=== PATIENT | male | born 1965 | race Hispanic/Latino ===

== ENCOUNTER 2018-12-29 12:35 | Inpatient (IN) | payer BC ==
[~2018-12-29] VITALS: Ht 175.3 cm; Wt 109.4 kg
[2018-12-29] MEDS ORDERED: SODIUM CHLORIDE 0.9% 1000ML 1,000 ML IV STA (13:00)
[2018-12-29] MEDS ORDERED: PANTOPRAZOLE 40 MG 10ML VIAL IV ONE (13:15)
[2018-12-29] MEDS ORDERED: ONDANSETRON HCL INJ 2MG/ML 2ML 2 MG/ML VIAL IV ONE (13:15)
[2018-12-29 13:19] LABS: BASOPHILS % 0.1 % (0.0-1.0); EOSINOPHILS # (AUTO) 0.1 (0.0-0.4); EOSINOPHILS % 0.6 % (0.0-6.0); HEMATOCRIT 44.1 % (38.2-49.6); HEMOGLOBIN 16.3 g/dL (14.0-18.0); LYMPHOCYTES % 24.8 % (18.0-39.1); MEAN CORPUSCULAR HEMOGLOBIN 30.4 pg (28-32); MEAN CORPUSCULAR VOLUME 82.1 fL (81-99); MONOCYTES # (AUTO) 0.5 (0.2-0.8); MONOCYTES % 6.5 % (4.4-11.3); NEUTROPHILS # (AUTO) 5.4 (2.1-6.9); NEUTROPHILS % 67.8 % (38.7-80.0); PLATELET COUNT 229 x10e3/uL (140-360); RED BLOOD COUNT 5.37 x10e6/uL (4.3-5.7)
[2018-12-29 13:33] LABS: INR 0.95; PROTHROMBIN TIME 13.5 seconds (11.9-14.5)
[2018-12-29 13:42] LABS: ALBUMIN 4.4 g/dL (3.5-5.0); ALBUMIN/GLOBULIN RATIO 1.3 (0.8-2.0); CALCIUM 10.4 mg/dL (8.4-10.2); CREATININE, SERUM 1.35 mg/dL (0.72-1.25)
[2018-12-29 13:49] LABS: AMYLASE 79 U/L (25-125); CREATINE KINASE 161 IU/L (30-200); LIPASE 58 U/L (8-78); MAGNESIUM 1.9 MG/DL (1.3-2.1)
[2018-12-29 14:30] LABS: AMPHETAMINES SCREEN,URINE NEGATIVE (NEGATIVE); BENZODIAZEPINES SCREEN,URINE POSITIVE (NEGATIVE); PHENCYCLIDINE SCREEN,URINE NEGATIVE (NEGATIVE)
[2018-12-29 14:32] LABS: CLARITY,URINE CLEAR (CLEAR); COLOR,URINE YELLOW (YELLOW); LEUKOCYTE ESTERASE ,URINE NEGATIVE (NEGATIVE); NITRITE,URINE NEGATIVE (NEGATIVE)
[2018-12-29 14:33] LABS: BILIRUBIN,URINE NEGATIVE (NEGATIVE); KETONES,URINE NEGATIVE (NEGATIVE); PROTEIN,URINE DIPSTICK NEGATIVE (NEGATIVE); URINE UROBILINOGEN 0.2 mg/dL (0.2 - 1)
[2018-12-29 14:38] LABS: EPITHELIAL CELLS,URINE RARE /LPF; TRANSITIONAL EPI CELLS,URINE RARE; WBC,URINE (MAN) 0-5 /HPF (0-5)
--- NOTE | 2018-12-29 15:17 | NUR ---
STILL WAITING ON CT ABD/PELVIS
[2018-12-29] MEDS ORDERED: IOPAMIDOL 370 MG/ML 200 ML INFUS..BTL INJ ONE (15:19)
[2018-12-29] MEDS ORDERED: SODIUM CHLORIDE 0.9% 50ML 50 ML ONE (15:19)
--- NOTE | 2018-12-29 16:41 | NUR ---
still waiting on CT abd/pelvis results
--- NOTE | 2018-12-29 17:10 | Diagnostic Imaging Report ---
EXAM: CT ABDOMEN AND PELVIS with IV CONTRAST DATE: 12/29/2018 Time stamp on Exam: 3:27 PM INDICATION: Nausea and vomiting with abdominal pain COMPARISON: None TECHNIQUE: The abdomen and pelvis were scanned using a multidetector helical scanner. Coronal and sagittal reformations were obtained. Routine protocol performed. IV Contrast: 100 cc of Isovue-370 Oral Contrast: Oral water Radiation Dose: Total DLP 817.65 mGy*cm; low-dose technique was utilized to maintain the lowest possible dose to the patient. Estimated effective dose: DLP x 0.015 x size factor Patient had a slightly low eGFR at 55. He underwent hydration protocol with administration of 750 cc of fluids per ER physician direction. FINDINGS: LOWER THORAX: No consolidations LIVER: No masses with decreased attenuation compared to the spleen compatible with fatty infiltration. BILIARY: The gallbladder is unremarkable. No ductal dilatation. SPLEEN: No masses PANCREAS: No masses ADRENALS: No nodules KIDNEYS: Symmetric perfusion. No enhancing masses. No hydronephrosis. Nonobstructing left interpolar renal stone measuring 3.1 mm. GI TRACT: No distention, wall thickening or evidence of obstruction. Sigmoid colon diverticula without findings of diverticulitis. VESSELS: Unremarkable PERITONEUM/RETROPERITONEUM: No free air or fluid LYMPH NODES: No lymphadenopathy REPRODUCTIVE ORGANS: Unremarkable BLADDER: Unremarkable SOFT TISSUES: Unremarkable BONES: No suspicious bone lesions. Disc space narrowing and degenerative changes at L5-S1. IMPRESSION: 1. No acute abnormality within the abdomen or pelvis. 2. Nonobstructing small left renal interpolar stone. 3. Sigmoid colon diverticulosis without evidence of diverticulitis. 4. Diffuse fatty infiltration of the liver. Signed by: Dr. Edgardo Pappas DO on 12/29/2018 5:07 PM
[2018-12-29] MEDS ORDERED: ONDANSETRON HCL INJ 2MG/ML 2ML 2 MG/ML VIAL IV PRN (17:30)
[2018-12-29] MEDS ORDERED: DIPHENHYDRAMINE HCL INJ 50 MG/ML VIAL IV PRN (17:30)
--- OUTSIDE RECORDS SUMMARY | 2018-12-29 17:44 | XMS REPORT ---
Author [facility] Address Unknown Phone Unavailable Care Team Providers Care [employer] Name Role Phone Dalton ALTMAN Unavailable Unavailable Problems This patient has no known problems. Allergies, Adverse Reactions, Alerts This patient has no known allergies or adverse reactions. Medications This patient has no known medications. Results Test Description Test Time Test Comments Text Results Atomic Results Result Comments CT ABDOMEN/PELVIS W 2018-12-29 16:50:00 [place] [address] Patient Name: CHERIE REED MR #: [id number] : 1965 Age/Sex: 53/M Req #: [id number] Adm Physician: Ordered by: ROOSEVELT ALTMAN MD Report #: [id number] Location: ER Room/Bed: Procedure: [id number] CT/CT ABDOMEN/PELVIS W Exam Date: 12/29/18 Exam Time: 1500 REPORT STATUS: Signed EXAM: CT ABDOMEN AND PELVIS with IV CONTRAST DATE: Time stamp on Exam: 3:27 PM INDICATION: Nausea and vomiting with abdominal pain COMPARISON: None TECHNIQUE: The abdomen and pelvis were scanned using a multidetector helical scanner. Coronal and sagittal reformations were obtained. Routine protocol performed. IV Contrast: 100 cc of Isovue-370 Oral Contrast: Oral water Radiation Dose: Total DLP 817.65 mGy*cm; low-dose technique was utilized to maintain the lowest possible dose to the patient. Estimated effective dose: DLP x 0.015 x size factor Patient had a slightly low eGFR at 55. He underwent hydration protocol with administration of 750 cc of fluids per ER physician direction. FINDINGS: LOWER THORAX: No consolidations LIVER: No masses with decreased attenuation compared to the spleen compatible with fatty infiltration. BILIARY: The gallbladder is unremarkable. No ductal dilatation. SPLEEN: No masses PANCREAS: No masses ADRENALS: No nodules KIDNEYS: Symmetric perfusion. No enhancing masses. No hydronephrosis. Nonobstructing left interpolar renal stone measuring 3.1 mm. GI TRACT: No distention, wall thickening or evidence of obstruction. Sigmoid colon diverticula without findings of diverticulitis. VESSELS: Unremarkable PERITONEUM/RETROPERITONEUM: No free air or fluid LYMPH NODES: No lymphadenopathy REPRODUCTIVE ORGANS: Unremarkable BLADDER: Unremarkable SOFT TISSUES: Unremarkable BONES: No suspicious bone lesions. Disc space narrowing and degenerative changes at L5- S1. IMPRESSION: 1. No acute abnormality within the abdomen or pelvis. 2. Nonobstructing small left renal interpolar stone. 3. Sigmoid colon diverticulosis without evidence of diverticulitis. 4. Diffuse fatty infiltration of the liver. Signed by: Dr. Orestes Valdes DO on 12/29/2018 5:07 PM Dictated By: ORESTES VALDES DO 06 Transcribed By: ARACELIS on 12/29/181706 COPY TO: ROOSEVELT ALTMAN MD
[2018-12-29] MEDS: SODIUM CHLORIDE 0.9% 1000ML 1,000 ML IV SCH (20:10)
--- NOTE | 2018-12-29 20:20 | NUR ---
Patient received via stretcher from ER accompanied by . Admission history obtained and Initial Physical assessment conducted. Patient is AAO x 4. No complaints of pain. No signs of respiratory distress. IVF infusing at 100 cc /hr. Patient oriented to room , call light and plan of care. Bed locked and in lowest position. Bed rails up x 2. Patient instructed to call for assistance when needed. Call light within reach.
[2018-12-29 20:30] VITALS: BP 111/50
[2018-12-29 20:35] VITALS: BP 117/61
[2018-12-29] MEDS: METOCLOPRAMIDE HCL 10 MG/2ML VIAL IV SCH (20:47)
[2018-12-29] MEDS ORDERED: METFORMIN HCL500 MG PO (22:54)
[2018-12-29] MEDS ORDERED: ZOLPIDEM TARTRA10 MG PO (22:54)
[2018-12-29] MEDS ORDERED: LISINOPRIL10 MG PO (22:54)
[2018-12-29] MEDS ORDERED: CRESTOR10 MG PO (22:54)
[2018-12-29] MEDS ORDERED: TRIAMTERENE-HCTZ1 EA PO (22:54)
[2018-12-29 23:42] VITALS: BP 94/80
--- NOTE | 2018-12-30 00:16 | NUR ---
Blood specimen sent to lab for analysis of cardiac enzymes.
[2018-12-30 01:07] LABS: CREATINE KINASE MB 1.5 ng/mL (0-5.0)
[2018-12-30] MEDS: SODIUM CHLORIDE 0.9% 1000ML 1,000 ML IV SCH ×2 (05:20→13:28)
[2018-12-30 05:46] LABS: BASOPHILS % 0.3 % (0.0-1.0); EOSINOPHILS # (AUTO) 0.1 (0.0-0.4); EOSINOPHILS % 0.8 % (0.0-6.0); HEMATOCRIT 38.5 % (38.2-49.6); HEMOGLOBIN 14.3 g/dL (14.0-18.0); LYMPHOCYTES # (AUTO) 2.1 (1.0-3.2); LYMPHOCYTES % 29.3 % (18.0-39.1); MEAN CORPUSCULAR HEMOGLOBIN 30.7 pg (28-32); MEAN CORPUSCULAR HGB CONC 37.1 g/dL (31-35); MEAN CORPUSCULAR VOLUME 82.6 fL (81-99); MONOCYTES # (AUTO) 0.5 (0.2-0.8); MONOCYTES % 7.5 % (4.4-11.3); NEUTROPHILS # (AUTO) 4.4 (2.1-6.9); NEUTROPHILS % 61.8 % (38.7-80.0); PLATELET COUNT 173 x10e3/uL (140-360); RED BLOOD COUNT 4.66 x10e6/uL (4.3-5.7); RED CELL DISTRIBUTION WIDTH 12.2 % (11.7-14.4)
[2018-12-30 06:05] VITALS: BP 118/56
[2018-12-30 06:06] LABS: ALANINE AMINOTRANSFERASE 38 IU/L (0-55); ALBUMIN 3.6 g/dL (3.5-5.0); ALBUMIN/GLOBULIN RATIO 1.4 (0.8-2.0); ALKALINE PHOSPHATASE 57 IU/L (40-150); ANION GAP 16.9 mmol/L (8-16); BLOOD UREA NITROGEN 14 mg/dL (7-26); BUN/CREATININE RATIO 12 (6-25); CALCIUM 9.3 mg/dL (8.4-10.2); CARBON DIOXIDE 21 mmol/L (22-29); CHLORIDE 87 mmol/L (98-107); CREATININE, SERUM 1.13 mg/dL (0.72-1.25); EST GLOMERULAR FILTRATION RATE > 60 ML/MIN (60-); GLUCOSE 129 mg/dL (74-118); POTASSIUM 3.9 mmol/L (3.5-5.1); SODIUM 121 mmol/L (136-145)
--- NOTE | 2018-12-30 07:00 | NUR ---
RCD PT AT BED PT IS ALERT AND ORIENTED PT RESTING ON BED NO SIGNS OF ANY DISTRESS NOTED IV PATENT FAMILY AT BED SIDE BED LOW AND LOCKED CALL LIGHT IN REACH
--- NOTE | 2018-12-30 07:02 | NUR ---
Walking rounds done. Shift report given to oncoming nurse.
[2018-12-30] MEDS: METOCLOPRAMIDE HCL 10 MG/2ML VIAL IV SCH ×4 (07:30→21:25)
[2018-12-30 08:01] VITALS: BP 107/53
[2018-12-30 08:52] LABS: CREATINE KINASE 174 IU/L (30-200)
[2018-12-30] MEDS: PANTOPRAZOLE 40 MG 10ML VIAL IV SCH ×2 (08:53→17:00)
[2018-12-30 11:35] VITALS: BP 111/72
--- NOTE | 2018-12-30 14:13 | NUR ---
CASE MANAGEMENT ASSESSMENT Family And Consumer Education Teacher to bedside to discuss plan of care with patient/family. CM/SW role and care transitions discussed. Anticipated discharge plan discussed along with duration of care. CM/SW discussed patients right to make decisions in care. CM/SW work hours given. Patient lives: with Deepa Admit/Transfer: thru ED Hospital/ER visits since last admit: Last hospitalization in 2014 or 2015; no ED visits since then POA/Emergency contact: Deepa Hardy [phone] Current/Previous Home Health: none PCP/Follow-up Care: Dr. Jagjit Moyer - advised pt to follow up within 7 days of discharge. pt states he will call and set up follow up appointment Current/Previous DME: none Medications (referring to index hospitalization or the first time you were in the hospital) a. Were changes made in your medications when you were in the hospital on [date of index hospitalization]? n/a b. Did you understand the changes? n/a c. Were you able to obtain your new medications right away? n/a d. Were you able to take your medications like the doctor wanted you to? n/a e. Did the hospital give you an accurate, easy to understand list of medications when you left? n/a Scale of 1-10 how comfortable does patient feel with disease management in outpatient settin Other Services: none Employment Status: employed at [employer] Areas of Concerns: none Referral Needs: none Education Needs: medical management IMM/[facility] given and signed (if applicable): n/a Goal for discharge: home CM/SW left business card at the bedside with contact information. Name and number was also written on the patients whiteboard. Patient verbalized understanding of discussion. CM will follow-up with ongoing discharge and transition of care needs.
[2018-12-30 15:34] VITALS: BP 108/59
--- NOTE | 2018-12-30 18:56 | NUR ---
PT RESTING ON BED BED SIDE REPORT GIVEN TO ONCOMING NURSE
[2018-12-30 19:40] VITALS: BP 104/58
[2018-12-30 20:57] VITALS: BP 104/58
[2018-12-30] MEDS ORDERED: CRESTOR 10MG PO SCH (21:00)
--- NOTE | 2018-12-30 21:01 | NUR ---
Received patient from day nurse, patient is alert and oriented x 3, shift change done with day nurse and i introduced myself to patient, safety and fall precautions maintained as per hospital protocol: bed in lowest position and locked, needed items beside bed and call couch placed close to patient, patient instructed to use it to call nurses for any assistance needed and patient verbalized understanding, yellow socks on patient and bed alarm activated, patient is currently stable will continue to monitor.
[2018-12-31 00:02] VITALS: BP 110/63
[2018-12-31] MEDS: SODIUM CHLORIDE 0.9% 1000ML 1,000 ML IV SCH ×2 (02:21→09:28)
[2018-12-31 05:10] VITALS: BP 121/69
--- NOTE | 2018-12-31 06:45 | NUR ---
Patient condition throughout the night was stable, patient endorsed to next shift for continuity of care.
[2018-12-31 07:52] VITALS: BP 125/72
[2018-12-31 08:11] LABS: ALANINE AMINOTRANSFERASE 37 IU/L (0-55); ALBUMIN 3.7 g/dL (3.5-5.0); ALBUMIN/GLOBULIN RATIO 1.5 (0.8-2.0); ALKALINE PHOSPHATASE 57 IU/L (40-150); BLOOD UREA NITROGEN 11 mg/dL (7-26); BUN/CREATININE RATIO 11 (6-25); CALCIUM 9.3 mg/dL (8.4-10.2); CARBON DIOXIDE 23 mmol/L (22-29); CHLORIDE 96 mmol/L (98-107); CREATININE, SERUM 1.02 mg/dL (0.72-1.25); EST GLOMERULAR FILTRATION RATE > 60 ML/MIN (60-); GLUCOSE 111 mg/dL (74-118); SODIUM 131 mmol/L (136-145)
[2018-12-31] MEDS: PANTOPRAZOLE 40 MG 10ML VIAL IV SCH (08:42)
[2018-12-31] MEDS: METOCLOPRAMIDE HCL 10 MG/2ML VIAL IV SCH (08:42)
[2018-12-31 09:48] VITALS: BP 125/72
== END 2018-12-31 10:13 | disposition home or self-care (01) | DRG 392 ==
LOC: ER 12:35 → ERHOLD 17:41 → MED/SURG2 19:56
PROVIDERS: ADMIT Internal Medicine; ATTEND Internal Medicine
DX: K52.9 Noninfective gastroenteritis and colitis, unspecified (principal); E87.1 Hypo-osmolality and hyponatremia; E86.0 Dehydration; E11.9 Type 2 diabetes mellitus without complications; Z79.4 Long term (current) use of insulin; I10 Essential (primary) hypertension
CPT/HCPCS: 36415; 74177; 80053; 80307; 81001; 82150; 82550; 82553; 83690; 83735; 84484; 85025; 85610; 85730; 99283; J2405; J2765; J7030; Q9967

== ENCOUNTER 2024-05-16 17:57 | Emergency (ER) | payer BC, OTHER ==
[~2024-05-16] VITALS: Ht 175.3 cm; Wt 109.3 kg
[~2024-05-16 17:57] MED LIST: CRESTOR10 MG PO; LISINOPRIL10 MG PO; METFORMIN HCL500 MG PO; TRIAMTERENE-HCTZ1 EA PO; ZOLPIDEM TARTRA10 MG PO
[2024-05-16 18:44] LABS: BASOPHILS % 0.4 % (0.0-1.0); EOSINOPHILS # (AUTO) 0.1 (0.0-0.4); EOSINOPHILS % 1.5 % (0.0-6.0); HEMATOCRIT 45.3 % (38.2-49.6); HEMOGLOBIN 16.2 g/dL (14.0-18.0); LYMPHOCYTES # (AUTO) 2.3 (1.0-3.2); LYMPHOCYTES % 42.6 % (18.0-39.1); MEAN CORPUSCULAR HEMOGLOBIN 31.7 pg (28-32); MEAN CORPUSCULAR HGB CONC 35.8 g/dL (31-35); MEAN CORPUSCULAR VOLUME 88.6 fL (81-99); MONOCYTES # (AUTO) 0.3 (0.2-0.8); MONOCYTES % 6.1 % (4.4-11.3); NEUTROPHILS # (AUTO) 2.6 (2.1-6.9); NEUTROPHILS % 49.2 % (38.7-80.0); PLATELET COUNT 156 x10e3/uL (140-360); RED BLOOD COUNT 5.11 x10e6/uL (4.3-5.7); RED CELL DISTRIBUTION WIDTH 11.9 % (11.7-14.4); WHITE BLOOD COUNT 5.28 x10e3/uL (4.8-10.8)
[2024-05-16 18:59] LABS: ALANINE AMINOTRANSFERASE 29 IU/L (0-55); ALBUMIN 3.9 g/dL (3.5-5.0); ALBUMIN/GLOBULIN RATIO 1.2 (0.8-2.0); ALKALINE PHOSPHATASE 68 IU/L (40-150); ANION GAP 14.8 mmol/L (8-16); BILIRUBIN,TOTAL 0.6 mg/dL (0.2-1.2); BLOOD UREA NITROGEN 18 mg/dL (7-26); BUN/CREATININE RATIO 15 (6-25); CALCIUM 9.3 mg/dL (8.4-10.2); CARBON DIOXIDE 24 mmol/L (22-29); CHLORIDE 102 mmol/L (98-107); CREATINE KINASE 104 IU/L (30-200); CREATININE, SERUM 1.24 mg/dL (0.72-1.25); EST GLOMERULAR FILTRATION RATE 66 ML/MIN (>=60); GLUCOSE 282 mg/dL (74-118); POTASSIUM 3.8 mmol/L (3.5-5.1); SODIUM 137 mmol/L (136-145); TOTAL PROTEIN 7.1 g/dL (6.5-8.1)
[2024-05-16 19:06] LABS: TROPONIN I < 0.001 ng/mL (0-0.300)
[2024-05-16] MEDS ORDERED: IOPAMIDOL 370 MG/ML 100 ML INFUS..BTL INJ ONE (19:19)
[2024-05-16] MEDS ORDERED: CLEOCIN HCL300 MG PO (21:23)
[2024-05-16 21:26] VITALS: PULSE 71; RESP 18; TEMP 98.6; O2SAT 98
== END 2024-05-16 22:38 | disposition home or self-care (01) ==
LOC: ER 18:01
DX: H53.2 Diplopia (principal); I10 Essential (primary) hypertension; E11.9 Type 2 diabetes mellitus without complications; Z88.0 Allergy status to penicillin; Z79.84 Long term (current) use of oral hypoglycemic drugs; Z79.899 Other long term (current) drug therapy
CPT/HCPCS: 36415; 70496; 70498; 71045; 80053; 82550; 83690; 83880; 84484; 85025; 93005; 99284; Q9967